=== PATIENT | female | born 1945 | race Caucasian/White ===

== ENCOUNTER 2020-04-21 15:31 | Emergency (ER) | payer OTHER ==
--- NOTE | 2020-04-21 16:49 | RAD REPORT ---
EXAM DESCRIPTION: Elías Single View04/21/2020 4:42 pm CLINICAL HISTORY: Chest pain/syncope COMPARISON: 2013 FINDINGS: The lungs appear clear of acute infiltrate. The heart is normal size IMPRESSION: No acute abnormalities displayed
[2020-04-21] MEDS ORDERED: ONDANSETRON 4 MG/2 ML VIAL ONE (16:56)
[2020-04-21] MEDS ORDERED: NA CHLORIDE 0.9% 1,000 ML ONE (16:56)
[2020-04-21 17:08] LABS: Absolute Lymphocytes (CBC) 1.9 K/uL (0.7-4.9); Basophils % 0.5 % (0-1.3); Lymphocytes % 22.9 % (15.3-44.8); MPV 8.8 fL (7.6-11.3)
[2020-04-21 17:25] LABS: BUN Blood Urea Nitrogen 14 mg/dL (7-18); Bicarbonate 31 mmol/L (21-32); Glucose Level 115 mg/dL (74-106); Potassium 3.6 mmol/L (3.5-5.1); Sodium Level 143 mmol/L (136-145); Troponin (Emerg Dept Use Only) < 0.02 ng/mL (0.0-0.045)
--- NOTE | 2020-04-21 17:44 | ER ---
Nurse's Notes [facility] Name: Mery Skinner Age: 75 yrs Sex: Female : 1945 Arrival Date: 04/21/2020 Time: 15:32 Bed 6 Private MD: Diagnosis: Syncope and collapse Presentation: 04/21 15:54 Chief complaint: Spouse and/or significant other states: "She woke up yesterday feeling jd3 real weak. we were worried about COVID, so we got tested and it was negative. we stopped on the way home and she passed out and now she is nauseous. she is saying she is having some right shoulder pain too.". Coronavirus screen: At this time, the client does not indicate any symptoms associated with coronavirus-19. Ebola Screen: Patient negative for fever greater than or equal to 101.5 degrees Fahrenheit, and additional compatible Ebola Virus Disease symptoms. Initial Sepsis Screen: Does the patient meet any 2 criteria? No. Patient's initial sepsis screen is negative. Does the patient have a suspected source of infection? No. Patient's initial sepsis screen is negative. Risk Assessment: Do you want to hurt yourself or someone else? Patient reports no desire to harm self or others. Onset of symptoms was April 20, 2020. 15:54 Method Of Arrival: Wheelchair jd3 15:54 Acuity: TYSHAWN 3 jd3 Triage Assessment: 16:00 General: Appears distressed, uncomfortable, slender, Behavior is cooperative, bp appropriate for age, anxious. Pain: Denies pain. EENT: No deficits noted. Neuro: Reports a syncopal episode. Cardiovascular: Rhythm is sinus rhythm. Respiratory: No deficits noted. GI: No signs and/or symptoms were reported involving the gastrointestinal system. : No signs and/or symptoms were reported regarding the genitourinary system. Derm: No deficits noted. Musculoskeletal: No deficits noted. Historical: - Allergies: 15:57 No Known Allergies; jd3 - PSHx: 15:57 Hysterectomy; jd3 - Immunization history:: Adult Immunizations up to date. - Social history:: Smoking status: Patient denies any tobacco usage or history of. - Family history:: not pertinent. - Hospitalizations: : No recent hospitalization is reported. Screenin:00 Abuse screen: Denies threats or abuse. Denies injuries from another. Nutritional bp screening: No deficits noted. Tuberculosis screening: No symptoms or risk factors identified. Fall Risk No fall in past 12 months (0 pts). No secondary diagnosis (0 pts). IV access (20 points). Ambulatory Aid- None/Bed Rest/Nurse Assist (0 pts). Gait- Normal/Bed Rest/Wheelchair (0 pts) Mental Status- Oriented to own ability (0 pts). Total May Fall Scale indicates. Assessment: 16:00 General: SEE TRIAGE NOTE. bp 17:00 Neuro: Level of Consciousness is awake, alert, obeys commands, Oriented to Appropriate bp for age Moves all extremities. Full function. Cardiovascular: Rhythm is sinus rhythm. 18:16 Reassessment: PT D/C HOME AMBULATORY, DX WITH SYNCOPE AND COLLAPSE. bp Vital Signs: 15:57 BP 140 / 81; Pulse 75; Resp 20 S; Temp 97.2(TE); Pulse Ox 98% on R/A; Weight 58.97 kg jd3 (R); Height 5 ft. 4 in. (162.56 cm) (R); Pain 0/10; 17:00 BP 126 / 81; Pulse 65; Resp 19; Pulse Ox 100% ; rb3 18:16 BP 126 / 81; Pulse 66; Resp 16; Temp 98; Pulse Ox 100% ; bp 15:57 Body Mass Index 22.32 (58.97 kg, 162.56 cm) jd3 ED Course: 15:32 Patient arrived in ED. as 15:56 Triage completed. jd3 15:59 Arm band placed on. jd3 16:00 Grant James MD is Attending Physician. rn 16:00 Patient has correct armband on for positive identification. Bed in low position. Call bp light in reach. Side rails up X2. Adult w/ patient. 16:04 Chandler Cárdenas, MERE is Primary Nurse. bp 16:43 XRAY Chest (1 view) In Process Unspecified. EDMS 16:45 Inserted saline lock: 20 gauge in right forearm, using aseptic technique. Blood bp collected. 18:16 No provider procedures requiring assistance completed. IV discontinued, intact, bp bleeding controlled, No redness/swelling at site. Pressure dressing applied. Administered Medications: 16:55 Drug: NS 0.9% 1000 ml Route: IV; Rate: 1000 ml; Site: right forearm; bp 18:17 Follow up: IV Status: Completed infusion; IV Intake: 1000ml bp 16:55 Drug: Zofran (Ondansetron) 4 mg Route: IVP; Site: right forearm; bp 18:17 Follow up: Response: No adverse reaction bp Intake: 18:17 IV: 1000ml; Total: 1000ml. bp Outcome: 17:43 Discharge ordered by MD. rn 18:17 Discharged to home ambulatory, with family. bp 18:17 Condition: stable 18:17 Discharge instructions given to patient, Instructed on discharge instructions, follow up and referral plans. Demonstrated understanding of instructions, follow-up care. 18:17 Patient left the ED. bp Signatures: Dispatcher [employer] EDMS Trudi Easley Roman, MD MD rn Davies, Jonathon, RN RN jChandler Cid RN RN Cece Lea, RN RN rb3 Corrections: (The following items were deleted from the chart) 15:59 15:57 Resp 20bpm; Spontaneous; Pulse Ox 100% RA; Temp 97.2F Temporal; 58.97 kg jd3 Reported; Height 5 ft. 4 in. Reported; BMI: 22.3; Pain 0/10; jd3 16:00 15:54 Chief complaint: Spouse and/or significant other states: "She woke up yesterday jd3 feeling real weak. we were worried about COVID, so we got tested and it was negative. we stopped on the way home and she passed out and now she is nauseous." jhayes
--- NOTE | 2020-04-21 17:44 | EDPHYS ---
Physician Documentation [facility] Name: Mery Skinner Age: 75 yrs Sex: Female : 1945 Arrival Date: 04/21/2020 Time: 15:32 Bed 6 Private MD: ED Physician Grant James HPI: 04/21 16:17 This 75 yrs old Female presents to ER via Wheelchair with complaints of rn Syncope. 16:17 The patient has experienced syncope. Onset: The symptoms/episode began/occurred just rn prior to arrival. 16:19 Duration: This was a single episode. Associated injury: The patient did not suffer any rn apparent associated injury. Associated signs and symptoms: Pertinent positives: diaphoresis, nausea, vomiting, Pertinent negatives: abdominal pain, chest pain, confusion, diarrhea, headache, palpitations, seizure. Current symptoms: Currently, the patient is not experiencing any symptoms. The patient has experienced similar episodes in the past. Reports hx of vasovagal syncope, had just gotten COVID test performed in Urgent care in [place], was negative, driving home, felt clammy, felt like was going to pass out, + brief syncopal episode in car, no seizure activity, threw up afterwards and now feeling better. Reports multiple similar episodes in past with negative workups. Denies focal pain. Does report recent aches of right shoulder blade region. No trauma. no headache. No vision changes. . Historical: - Allergies: 15:57 No Known Allergies; jd3 - PSHx: 15:57 Hysterectomy; jd3 - Immunization history:: Adult Immunizations up to date. - Social history:: Smoking status: Patient denies any tobacco usage or history of. - Family history:: not pertinent. - Hospitalizations: : No recent hospitalization is reported. ROS: 16:19 Constitutional: Negative for fever, chills, and weight loss, Eyes: Negative for injury, rn pain, redness, and discharge, Neck: Negative for injury, pain, and swelling, Cardiovascular: Negative for chest pain, palpitations, and edema, Respiratory: Negative for shortness of breath, cough, wheezing, and pleuritic chest pain, Abdomen/GI: Negative for abdominal pain, diarrhea, and constipation, Back: Negative for injury and pain, : Negative for injury, bleeding, discharge, and swelling, MS/Extremity: Negative for injury and deformity, Skin: Negative for injury, rash, and discoloration, Neuro: Negative for headache, weakness, numbness, tingling, and seizure. Exam: 16:19 Constitutional: This is a well developed, well nourished patient who is awake, alert, rn and in no acute distress. Head/Face: Normocephalic, atraumatic. Eyes: Pupils equal round and reactive to light, extra-ocular motions intact. Lids and lashes normal. Conjunctiva and sclera are non-icteric and not injected. Cornea within normal limits. Periorbital areas with no swelling, redness, or edema. ENT: MMM Cardiovascular: Regular rate and rhythm. No pulse deficits. Respiratory: No increased work of breathing, no retractions or nasal flaring. Abdomen/GI: soft, non-tender Skin: Warm, dry MS/ Extremity: Pulses equal, no cyanosis. Neuro: Awake and alert, GCS 15, oriented to person, place, time, and situation. Cranial nerves II-XII grossly intact. Motor strength 5/5 in all extremities. Sensory grossly intact. Cerebellar exam normal. Vital Signs: 15:57 BP 140 / 81; Pulse 75; Resp 20 S; Temp 97.2(TE); Pulse Ox 98% on R/A; Weight 58.97 kg jd3 (R); Height 5 ft. 4 in. (162.56 cm) (R); Pain 0/10; 17:00 BP 126 / 81; Pulse 65; Resp 19; Pulse Ox 100% ; rb3 18:16 BP 126 / 81; Pulse 66; Resp 16; Temp 98; Pulse Ox 100% ; bp 15:57 Body Mass Index 22.32 (58.97 kg, 162.56 cm) jd3 MDM: 16:00 Patient medically screened. rn 17:38 Differential Diagnosis: cardiac arrhythmia, idiopathic syncope, vasovagal episode. Data rn reviewed: vital signs, nurses notes, lab test result(s), EKG, radiologic studies, plain films, and as a result, I will discharge patient. Counseling: I had a detailed discussion with the patient and/or guardian regarding: the historical points, exam findings, and any diagnostic results supporting the discharge/admit diagnosis, lab results, radiology results, the need for outpatient follow up, to return to the emergency department if symptoms worsen or persist or if there are any questions or concerns that arise at home. Response to treatment: the patient's symptoms have markedly improved after treatment, patient is well hydrated. and as a result, I will discharge patient. Special discussion: I discussed with the patient/guardian in detail that at this point there is no indication for admission to the hospital. It is understood, however, that if the symptoms persist or worsen the patient needs to return immediately for re-evaluation. ED course: Pt without acute findings, had discussion with patient, requests that not a lot of tests be run because is feeling better already and has had multiple neg w/u before. She does not feel like is UTI. Did not want to be tested for COVID or other swabs. Feels much better with fluids. Wants to go home. . 04/21 16:16 Order name: CBC with Diff; Complete Time: 17:26 rn 04/21 16:16 Order name: Basic Metabolic Panel; Complete Time: 17:26 rn 04/21 16:16 Order name: Troponin (emerg Dept Use Only); Complete Time: 17:26 rn 04/21 16:18 Order name: XRAY Chest (1 view); Complete Time: 16:54 rn 04/21 16:16 Order name: IV Start; Complete Time: 16:57 rn 04/21 16:16 Order name: EKG; Complete Time: 16:17 rn 04/21 16:16 Order name: EKG - Nurse/Tech; Complete Time: 16:58 rn Administered Medications: 16:55 Drug: NS 0.9% 1000 ml Route: IV; Rate: 1000 ml; Site: right forearm; bp 18:17 Follow up: IV Status: Completed infusion; IV Intake: 1000ml bp 16:55 Drug: Zofran (Ondansetron) 4 mg Route: IVP; Site: right forearm; bp 18:17 Follow up: Response: No adverse reaction bp Disposition: 04/21/20 17:43 Discharged to Home. Impression: Syncope and collapse. - Condition is Stable. - Discharge Instructions: Syncope. - Medication Reconciliation Form, Thank You Letter, Antibiotic Education, Prescription Opioid Use form. - Follow up: Private Physician; When: As needed; Reason: Recheck today's complaints, Re-evaluation by your physician. - Problem is new. - Symptoms have improved. Signatures: Dispatcher [employer] EDGrant Nash, MD MD rn Murillo, Thierno, RN RN jd3 Chandler Cárdenas RN RN bp Corrections: (The following items were deleted from the chart) 18:17 17:43 04/21/2020 17:43 Discharged to Home. Impression: Syncope and collapse. Condition bp is Stable. Forms are Medication Reconciliation Form, Thank You Letter, Antibiotic Education, Prescription Opioid Use. Follow up: Private Physician; When: As needed; Reason: Recheck today's complaints, Re-evaluation by your physician. Problem is new. Symptoms have improved. rn
[2020-04-21 20:38] VITALS: BP 126/81; O2SAT 100
[2020-04-21 20:40] VITALS: TEMP 98
--- NOTE | 2020-04-22 07:41 | EKG ---
Test Date: 2020-04-21 Test Time: 16:57:20 Scrap Sawyer: KRISTI MEASUREMENT RESULTS: Intervals: Rate: 67 NM: 180 QRSD: 72 QT: 406 QTc: 429 [place]: P: 59 NM: 180 QRS: 73 T: 78 INTERPRETIVE STATEMENTS: Normal sinus rhythm Septal infarct, age undetermined Abnormal ECG Compared to ECG 03/16/2014 17:15:49 Myocardial infarct finding now present Sinus bradycardia no longer present Electronically Signed On 04-22-20 07:40:32 CHEMICAL MIXER by Bravo Olivera
== END 2020-04-21 18:17 | disposition home or self-care (01) ==
LOC: ER 15:31
DX: R55 Syncope and collapse (principal); R11.2 Nausea with vomiting, unspecified
CPT/HCPCS: 96361; 93005; 85025; 80048; 36415; 84484; 71045; 96374; 99284; J7030; J2405

== ENCOUNTER 2021-07-17 19:27 | Observation (INO) | payer OTHER ==
--- OUTSIDE RECORDS SUMMARY | 2021-07-17 19:30 | XMS REPORT | Continuity of Care Document ---
:1945 Author Organization [facility] t Address [address] [place] [address] Dr. Sams [address] [place] [id number] Care Team Providers Name Role Phone GC_[facility]_Cathey Attending Clinician Unavailable Fatoumata Booth Attending Clinician [phone] GC_[facility]_Cathey_G Attending Clinician Unavailable Miladys Philip Attending Clinician [phone] HARRIET Attending Clinician Unavailable GC_[facility]_Cathey Admitting Clinician Unavailable GC_SWHATBIC_Cathey_G Admitting Clinician Unavailable LARIOS Admitting Clinician Unavailable Payers Payer Name Policy Type Policy Number Effective Date Expiration Date S [facility] [id number] (MEDICARE REPLACEMENT/ADVANTAGE - PPO) Problems This patient has no known problems. Allergies, Adverse Reactions, Alerts This patient has no known allergies or adverse reactions. Medications This patient has no known medications. Procedures This patient has no known procedures. Encounters Start End Encounter Admission Attending Care Care Encounter Source Date/Time Date/Time Type Type Clinicians Facility Department ID 2021-07-04 2021-07-04 Outpatient [facility] PRIV PRIV [id number] [facility] 03:42:00 03:42:00 _Cathey [id number] [facility] 2021-07-03 2021-07-03 Outpatient GC_[facility] PRIV PRIV [id number] [facility] 11:02:00 11:02:00 _Cathey [id number] Med[facility] 2021-06-24 2021-06-24 Outpatient GC_[facility] PRIV PRIV [id number] [facility] 06:17:00 06:17:00 _Cathey [id number] Medica [facility] 2021-06-21 2021-06-21 Outpatient GC_[facility] PRIV PRIV [id number] [facility] 12:27:00 12:27:00 _Cathey [id number] Medica [facility] 2021-06-21 2021-06-21 Outpatient Booth, PRIV PRIV [id number] 00:00:00 00:00:00 Elaine Ham [id number] [facility] 2021-06-20 2021-06-20 Outpatient GC_[facility] PRIV PRIV [id number] [facility] 06:48:00 06:48:00 _Cathey [id number] Medica l 2021-06-19 2021-06-19 Outpatient GC_[facility] PRIV PRIV [id number] [facility] 05:54:00 05:54:00 _Cathey [id number] Medica l 2021-05-22 2021-05-22 Outpatient GC_[facility]WHATB[facility] PRIV PRIV [id number] [facility] 05:56:00 05:56:00 _Cathey_G [id number] [facility] 2021-05-17 2021-05-17 Outpatient GC_[facility] PRIV PRIV [id number] [facility] 11:59:00 11:59:00 _Cathey [id number] Medica l 2021-05-16 2021-05-16 Outpatient [facility] PRIV PRIV [id number] [facility] 12:57:00 12:57:00 _Cathey [id number] Medica l 2021-05-16 2021-05-16 Outpatient Tamera, PRIV PRIV [id number] 00:00:00 00:00:00 Jacy [id number] Miladys [id number] 2020-06-25 2020-06-25 Outpatient [facility] [id number] [place] 00:00:00 00:00:00 APOOR [address] 2020-05-21 2020-05-21 [facility] [id number] [place] 00:00:00 00:00:00 APOOR [address] Results This patient has no known results.
[2021-07-17 20:54] LABS: Absolute Lymphocytes (CBC) 0.4 K/uL (0.7-4.9); Lymphocytes % 11.2 % (15.3-44.8); MPV 8.1 fL (7.6-11.3); RBC Red Blood Cell Count 4.63 M/uL (3.86-4.86)
[2021-07-17] MEDS ORDERED: ONDANSETRON 4 MG/2 ML VIAL ONE (20:54)
[2021-07-17] MEDS ORDERED: IBUPROFEN 400 MG TAB ONE (20:54)
[2021-07-17 21:36] LABS: Potassium 3.7 mmol/L (3.5-5.1)
[2021-07-17 21:37] LABS: SARS-COV-2 RT PCR NEGATIVE (NEGATIVE)
[2021-07-17 22:40] LABS: Urine Urothelial Cells <5 /HPF (NONE SEEN)
[2021-07-17 22:41] LABS: Urine Bacteria <20 /HPF (<20); Urine RBC <5 /HPF (NONE SEEN)
--- NOTE | 2021-07-17 23:29 | ER ---
Nurse's Notes [facility] Name: Mery Skinnre Age: 76 yrs Sex: Female : 1945 Arrival Date: 07/17/2021 Time: 19:32 Bed 20 Private MD: Diagnosis: Fever, unspecified;UTI/ Urinary tract infection, site not specified Presentation: 07/17 19:44 Chief complaint: Patient states: she has been dealing with a uti since the summer and 5 has been taking bactrim the past 2 weeks. has now been having chills, headache and a fever the past few days. Coronavirus screen: Vaccine status: Patient reports receiving the 2nd dose of the covid vaccine. Ebola Screen: No symptoms or risks identified at this time. Initial Sepsis Screen: Does the patient meet any 2 criteria? No. Patient's initial sepsis screen is negative. Does the patient have a suspected source of infection? No. Patient's initial sepsis screen is negative. Risk Assessment: Do you want to hurt yourself or someone else? Patient reports no desire to harm self or others. Onset of symptoms was July 15, 2021. 19:44 Method Of Arrival: Ambulatory [facility] 19:44 Acuity: TYSHAWN 3 [facility] Triage Assessment: 19:47 Headache History: The patient has had previous headaches. General: Appears in no [facility] apparent distress. Behavior is cooperative, appropriate for age. Pain: Complains of pain in head Pain currently is 3 out of 10 on a pain scale. Pain began 2-3 days ago. Also complains of nausea. Neuro: No deficits noted. Level of Consciousness is awake, alert, obeys commands, Oriented to person, place, time, situation. Cardiovascular: No deficits noted. Capillary refill < 3 seconds Patient's skin is warm and dry. Respiratory: No deficits noted. Airway is patent Trachea midline Respiratory effort is even, unlabored. : Reports burning with urination, pain urinary frequency. Historical: - Allergies: 19:46 No Known Allergies; 5 - Immunization history:: Client reports receiving the 2nd dose of the Covid vaccine. - Social history:: Smoking status: Patient denies any tobacco usage or history of. - Family history:: not pertinent. - Hospitalizations: : No recent hospitalization is reported. Screenin:00 Abuse screen: Denies threats or abuse. Nutritional screening: No deficits noted. vc1 Tuberculosis screening: No symptoms or risk factors identified. Fall Risk None identified. Assessment: 20:00 General: Appears in no apparent distress. comfortable, Behavior is calm, cooperative, vc1 appropriate for age. Pain: Complains of pain in forehead, right scientology and left scientology Pain does not radiate. Neuro: Reports Headache. Cardiovascular: No deficits noted. Respiratory: No deficits noted. GI: Reports nausea. 21:00 Reassessment: Patient appears in no apparent distress at this time. Patient is alert, vc1 oriented x 3, equal unlabored respirations, skin warm/dry/pink. Patient states symptoms have improved. 23:00 Reassessment: Patient appears in no apparent distress at this time. Patient and/or vc1 family updated on plan of care and expected duration. Pain level reassessed. Patient is alert, oriented x 3, equal unlabored respirations, skin warm/dry/pink. 07/18 00:24 Reassessment: Patient and/or family updated on plan of care and expected duration. Pain vc1 level reassessed. Patient is alert, oriented x 3, equal unlabored respirations, skin warm/dry/pink. Patient states symptoms have improved. Vital Signs: 07/17 19:44 BP 146 / 89; Pulse 97; Resp 18; Temp 99.4(O); Pulse Ox 98% on R/A; Weight 61.23 kg; 5 Height 5 ft. 4 in. (162.56 cm); Pain 3/10; 23:09 Pulse 80; Resp 20; Pulse Ox 94% on R/A; vc1 23:38 BP 106 / 64; Pulse 80; Resp 18; Temp 98.3(O); Pulse Ox 95% on R/A; vc1 07/18 00:00 BP 104 / 63; Pulse 81; Resp 18; Pulse Ox 97% on R/A; vc1 07/17 19:44 Body Mass Index 23.17 (61.23 kg, 162.56 cm) 5 ED Course: 07/17 19:32 Patient arrived in ED. ja2 19:46 Triage completed. 5 19:47 Arm band placed on right wrist. 5 19:49 Grant James MD is Attending Physician. rn 20:00 Patient has correct armband on for positive identification. Bed in low position. Call vc1 light in reach. Side rails up X2. Door closed. Warm blanket given. 20:47 Deepa Charles, MERE is Primary Nurse. vc1 20:48 Strep Sent. vc1 20:48 COVID-19/FLU A+B (Document "Date of Onset" if Symptomatic) Sent. vc1 20:48 Lactate Sent. vc1 20:48 Procalcitonin Sent. vc1 20:48 Basic Metabolic Panel Sent. vc1 20:48 Urine Culture Sent. vc1 20:48 Urine Microscopic Only Sent. vc1 20:48 CBC with Diff Sent. vc1 21:35 COVID-19/FLU A+B (Document "Date of Onset" if Symptomatic) Sent. vc1 21:35 Urine Microscopic Only Sent. vc1 21:35 Urine Culture Sent. vc1 21:35 Basic Metabolic Panel Sent. vc1 21:35 Procalcitonin Sent. vc1 21:35 Blood Culture Adult (2) Sent. vc1 21:35 Throat Culture Sent. vc1 22:11 CT Abd/Pelvis - IV Contrast Only In Process Unspecified. EDMS 23:28 Sandra Garcia MD is Hospitalizing Provider. rn 07/18 00:24 No provider procedures requiring assistance completed. Patient admitted, IV remains in vc1 place. Administered Medications: 07/17 20:48 Not Given (Other Intervention Used; Already took at homee): Tylenol 650 mg PO once vc1 21:03 Drug: Motrin (ibuprofen) 800 mg Route: PO; vc1 23:02 Follow up: Response: No adverse reaction vc1 23:51 Drug: Rocephin (cefTRIAXone) 1 grams Route: IV; Rate: calculated rate; Site: right vc1 forearm; 23:58 Follow up: Response: Nausea is increased; IV Intake: 50ml vc1 07/18 00:00 Follow up: Response: No adverse reaction; IV Status: Completed infusion; IV Intake: 03recx4 07/17 23:58 Drug: Zofran (Ondansetron) 4 mg {Note: Patient wanted to wait before receiving vc1 medication.} Route: IVP; Site: right forearm; 07/18 00:47 Follow up: Response: No adverse reaction vc1 Intake: 07/17 23:58 IV: 50ml; Total: 50ml. vc1 07/18 00:00 IV: 50ml; Total: 100ml. vc1 Outcome: 07/17 23:28 Decision to Hospitalize by Provider. rn 07/18 00:24 Condition: good vc1 Discharge instructions given to patient, Instructed on the need for admit. 00:46 Admitted to Med/surg accompanied by tech, family with patient, via wheelchair, room vc1 221, Report called to receiving nurse 00:47 Patient left the ED. vc1 Signatures: Dispatcher [employer] EDGrant Nash MD MD rn Alexander, Jessica ja2 Mazur, Sarah, RN RN 5 Deepa Charles RN RN vc1
--- NOTE | 2021-07-17 23:29 | EDPHYS ---
Physician Documentation [facility] Name: Mery Skinner Age: 76 yrs Sex: Female : 1945 Arrival Date: 07/17/2021 Time: 19:32 Bed 20 Private MD: ED Physician Grant James HPI: 07/17 20:04 This 76 yrs old Female presents to ER via Ambulatory with complaints of Urinary rn Problem, Fever, CHILLS, Headache, Nausea. 20:04 The patient reports fever, that was measured at 102 degrees Fahrenheit. Onset: The rn symptoms/episode began/occurred 3 day(s) ago. Modifying factors: there are no obvious modifying factors. Associated signs and symptoms: Pertinent positives: backache, chills, headache, Pertinent negatives: abdominal pain, altered mental status, cough, diarrhea, skin rash, shortness of breath, vomiting. Severity of symptoms: At their worst the symptoms were moderate in the emergency department the symptoms have improved. The patient has experienced similar episodes in the past. The patient has been recently seen by a physician:. Pt reports fever, chills, back ache, dysuria, for 3 days. Reports tmax 102. Is on bactrim for UTI. No cough/sob/chest pain/abd pain. Reports nausea. . Historical: - Allergies: 19:46 No Known Allergies; sm5 - Immunization history:: Client reports receiving the 2nd dose of the Covid vaccine. - Social history:: Smoking status: Patient denies any tobacco usage or history of. - Family history:: not pertinent. - Hospitalizations: : No recent hospitalization is reported. ROS: 20:06 Constitutional: + fever and chills Eyes: Negative for injury, pain, redness, and corn husker, Neck: Negative for injury, pain, and swelling, Cardiovascular: Negative for chest pain, palpitations, and edema, Respiratory: Negative for shortness of breath, cough, wheezing, and pleuritic chest pain, Abdomen/GI: + nausea Back: + lower back pain : + dysuria MS/Extremity: Negative for injury and deformity, Skin: Negative for injury, rash, and discoloration, Neuro: + headache and generalized weakness Exam: 20:06 Constitutional: This is a well developed, well nourished patient who is awake, alert, rn and in no acute distress. Head/Face: Normocephalic, atraumatic. Eyes: Periorbital areas with no swelling, redness, or edema. ENT: NO stridor Neck: Trachea midline, no masses palpated, and no cervical lymphadenopathy. Supple, full range of motion without nuchal rigidity. No Meningismus. Cardiovascular: Regular rate and rhythm. No pulse deficits. Respiratory: No increased work of breathing, no retractions or nasal flaring. Abdomen/GI: soft, non-tender, no rebound or masses Back: No spinal tenderness. No costovertebral tenderness. Full range of motion. Skin: Warm, dry MS/ Extremity: Pulses equal, no cyanosis. Neuro: Awake and alert, GCS 15 Vital Signs: 19:44 BP 146 / 89; Pulse 97; Resp 18; Temp 99.4(O); Pulse Ox 98% on R/A; Weight 61.23 kg; [facility] Height 5 ft. 4 in. (162.56 cm); Pain 3/10; 23:09 Pulse 80; Resp 20; Pulse Ox 94% on R/A; vc1 23:38 BP 106 / 64; Pulse 80; Resp 18; Temp 98.3(O); Pulse Ox 95% on R/A; vc1 07/18 00:00 BP 104 / 63; Pulse 81; Resp 18; Pulse Ox 97% on R/A; vc1 07/17 19:44 Body Mass Index 23.17 (61.23 kg, 162.56 cm) [facility] MDM: 07/17 19:49 Patient medically screened. rn 23:25 Differential diagnosis: viral Infection, bacterial infection, URI, UTI, rn gastroenteritis. Data reviewed: vital signs, nurses notes, lab test result(s), radiologic studies, CT scan, and as a result, I will admit patient. Counseling: I had a detailed discussion with the patient and/or guardian regarding: the historical points, exam findings, and any diagnostic results supporting the discharge/admit diagnosis, lab results, radiology results, the need for further work-up and treatment in the hospital. Response to treatment: the patient's symptoms have mildly improved after treatment, and as a result, I will admit patient. Admission orders: after a detailed discussion of the patient's condition and case, the admit orders are written by me. ED course: Pt without clear source of fever/rigors, ct abdomen pelvis neg for acute findings, COVID/Flu/Strep neg. Will admit to Dr. Garcia for IV abx and cultures. . 07/17 20:02 Order name: CBC with Diff; Complete Time: 21:12 rn 07/17 20:02 Order name: Basic Metabolic Panel; Complete Time: 22:32 rn 07/17 20:02 Order name: Urine Culture rn 07/17 20:02 Order name: Urine Microscopic Only; Complete Time: 22:43 rn 07/17 20:02 Order name: Procalcitonin; Complete Time: 22:43 rn 07/17 20:02 Order name: Lactate; Complete Time: 21:27 rn 07/17 20:02 Order name: Blood Culture Adult (2) rn 07/17 20:02 Order name: COVID-19/FLU A+B (Document "Date of Onset" if Symptomatic); Complete Time: rn 22:32 07/17 20:02 Order name: Strep; Complete Time: 21:27 rn 07/17 20:04 Order name: CT Abd/Pelvis - IV Contrast Only rn 07/17 21:17 Order name: Throat Culture EDND 07/17 20:02 Order name: IV Start; Complete Time: 20:48 rn 07/17 20:02 Order name: Urine Dipstick-Ancillary (obtain specimen); Complete Time: 20:48 rn Administered Medications: 20:48 Not Given (Other Intervention Used; Already took at homee): Tylenol 650 mg PO once vc1 21:03 Drug: Motrin (ibuprofen) 800 mg Route: PO; vc1 23:02 Follow up: Response: No adverse reaction vc1 23:51 Drug: Rocephin (cefTRIAXone) 1 grams Route: IV; Rate: calculated rate; Site: right vc1 forearm; 23:58 Follow up: Response: Nausea is increased; IV Intake: 50ml vc1 07/18 00:00 Follow up: Response: No adverse reaction; IV Status: Completed infusion; IV Intake: [id number] 07/17 23:58 Drug: Zofran (Ondansetron) 4 mg {Note: Patient wanted to wait before receiving vc1 medication.} Route: IVP; Site: right forearm; 07/18 00:47 Follow up: Response: No adverse reaction vc1 Disposition Summary: 07/17/21 23:28 Hospitalization Ordered Hospitalization Status: Observation rn Provider: Sandra Garcia rn Location: Telemetry/MedSurg (observation) rn Condition: Stable rn Problem: new rn Symptoms: have improved rn Bed/Room Type: Standard rn Room Assignment: 221(07/18/21 00:05) cg Diagnosis - Fever, unspecified rn - UTI/ Urinary tract infection, site not specified rn Forms: - Medication Reconciliation Form rn - SBAR form rn Signatures: Dispatcher [employer] EDGrant Nash MD MD rn Garcia, Cindy, RN RN cg Mazur, Sarah, RN RN 5 Deepa Charles RN RN vc1 Corrections: (The following items were deleted from the chart) 00:05 07/17 23:28 rn
[2021-07-17] MEDS ORDERED: CEFTRIAXONE 1000 MG/VIAL ONE (23:49)
[2021-07-17] MEDS ORDERED: NA CHLORIDE 0.9% 50 ML ONE (23:50)
[2021-07-18 00:55] VITALS: O2SAT 97
[2021-07-18 01:27] VITALS: BMI 23.4
[2021-07-18] MEDS: NA CHLORIDE 0.9% 1,000 ML IV SCH ×2 (02:09→10:03)
[2021-07-18] MEDS: ACETAMINOPHEN 500 MG TAB PO PRN ×2 (02:09→09:11)
[2021-07-18] MEDS ORDERED: ONDANSETRON 4 MG/2 ML VIAL IV PRN (03:00)
[2021-07-18 06:02] LABS: Absolute Lymphocytes (CBC) 0.7 K/uL (0.7-4.9); Hematocrit 38.7 % (36.0-45.0); Lymphocytes % 16.6 % (15.3-44.8); RBC Red Blood Cell Count 4.61 M/uL (3.86-4.86)
[2021-07-18 06:10] LABS: Potassium 4.4 mmol/L (3.5-5.1)
[2021-07-18] MEDS ORDERED: CEFTRIAXONE 1000 MG/VIAL ONE (07:57)
[2021-07-18] MEDS ORDERED: INFLUENZA VACCINE (for 6+ mo) 0.5 ML DOSE IMVAC ONE (08:00)
[2021-07-18] MEDS ORDERED: CEFTRIAXONE 1,000 MG in NA CHLORIDE 0.9% 50 ML IVPB SCH (10:00)
--- NOTE | 2021-07-18 10:34 | RAD REPORT ---
EXAM DESCRIPTION: Abdomen Pelvis W Contrast RadLex: CT ABDOMEN PELVIS WITH IV CONTRAST CLINICAL HISTORY: Fever, back pain, possible pyelonephritis. COMPARISON: None. TECHNIQUE: CT of the abdomen and pelvis was performed following intravenous administration of iodina nhi contrast. Arterial phase images through the abdomen, and portal venous phase images through the a bdomen and pelvis were obtained Oral contrast was not administered. Axial, coronal, and sagittal soft tissue window reconstructions were created and sent to PACS. This exam was performed according to our departmental dose-optimization program, which includes autom ated exposure control, adjustment of the mA and/or kV according to patient size and/or use of iterati ve reconstruction technique. FINDINGS: Thoracic: No significant abnormality. Hepatobiliary: No concerning hepatic lesion identified. Few tiny hepatic hypodensities, likely cysts. The portal veins are patent. The gallbladder is unremarkable. No biliary ductal dilatation. Pancreas: Unremarkable. Spleen: Unremarkable. Gastrointestinal: No evidence of bowel obstruction or perienteric inflammation. The appendix is nonvi sualized, but there are no pericecal inflammatory changes. Small to moderate amount of fecal material throughout the colon. Adrenals: No abnormality identified in either adrenal gland. Renal: No concerning parenchymal abnormality in either kidney. No striated appearance or regional hyp odensities to suggest pyelonephritis. Few small rounded hypodensities, likely cysts. No hydronephrosi s or urolithiasis. Bladder/Reproductive: Unremarkable appearance of the urinary bladder by CT technique. Vascular/Lymphatics: No lymphadenopathy identified by CT size criteria. Abdominal aorta is normal in caliber. Moderate calcific atherosclerosis. Musculoskeletal: No concerning osseous lesion identified. Prominent disc height loss at L4-5 and L5-S 1 with mild endplate degenerative changes. No osseous findings to suggest discitis-osteomyelitis. Fluid / peritoneum: No significant free fluid. No free intraperitoneal air identified. IMPRESSION 1. No acute abnormality identified in the abdomen or pelvis by CT. 2. No renal parenchymal heterogeneity to suggest imaging findings of acute pyelonephritis. 3. Prominent disc height loss at L4-5 and L5-S1 with mild endplate degenerative changes. No osseous findings by CT to suggest discitis-osteomyelitis. 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 The interpreting radiologist is fully responsible for the content of the report.
[2021-07-18 11:51] VITALS: BP 93/62; TEMP 98.7
--- NOTE | 2021-07-19 11:49 | SS ---
Date of Discharge: 07/18/2021 Chief Complaint: Fever and chills. History Of Present Illness: This is a 76-year-old female patient, who has been having recurrent urin yajaira tract infection, under care of urogynecologist in [place], Dr. Jacy Philip. The patient has ta nick antibiotics a few times in last few months and recently her last episode of urinary tract infecti on was about 12 days ago and she started to take Bactrim as prescribed by her urogynecologist. While on this antibiotic, she started to have fever and chills day before yesterday and yesterday. So wit h 2 days in a row with these symptoms, she came into emergency room. Denies any abdominal pain or ba ck pain. She has some dysuria with urinary tract infection. Denies any hematuria. After she was ev aluated in ER, urine culture and blood culture were done and she was admitted to the hospital with IV antibiotic, ceftriaxone. This morning when I saw her, she was feeling better, denied any complaints . No nausea. No vomiting. Allergies: NO KNOWN ALLERGIES. Medications: She takes Prolia injection every 6 months and she is on estrogen vaginal suppository as prescribed by her urogynecologist and takes Caltrate plus D 2 times a day as well as Bactrim prescri bed recently for urinary tract infection. Review of Systems: Constitutional: As mentioned above. Genitourinary: As mentioned above. All other systems reviewed and negative. Past Medical History: Significant for hyperlipidemia, diverticulosis, osteoporosis, and recurrent ur inary tract infection, thyroid nodule. Past Surgical History: Biopsy on thyroid nodule in May 22, 2020 and it was negative. She had h ysterectomy in the past and removal of ovarian cyst and bladder suspension surgery. Family History: Significant for father with head injury. Mother , had breast cancer. Social History: Prior history of smoking, not at present time. Use of alcohol occasional, use of gl ass of wine or beer. Physical Examination: Vital Signs: Upon admission; temperature 99.4, pulse 97, respiratory rate 18, blood pressure 146/89, oxygen saturation 98%. Height 5 feet 4 inches, weight 136 pounds. General: Awake, alert, oriented, not in distress. HEENT: Head atraumatic, normocephalic. Conjunctivae nonerythematous. Sclerae white. Mouth, no thr ush or edema noted. Ears/Nose, no mass, lesion, discharge noted. Neck: Supple. No JVD, lymph nodes, bruit, thyromegaly noted. Lungs: Bilateral good equal air entry. Clear to auscultation. No rhonchi. No rales. Heart: Normal heart sounds, no murmur or gallop. Abdomen: Soft, bowel sounds normal. No guarding, rigidity, tenderness, mass, hepatosplenomegaly, dis tention, or bruit noted. Extremities: No leg edema. No calf tenderness. Skin: No rash, ulcer, cellulitis. Lymphatics: No lymph node enlargement in neck, supraclavicular, infraclavicular region. Neuro: No focal neurological deficit. Chest: Unremarkable. External Genitalia: Deferred. Rectal: Deferred. Laboratory Data: Yesterday; white count 4, hemoglobin 13.1, platelets 187. This morning; white coun t 4.2, hemoglobin 13, platelets 191. Yesterday; sodium 135, potassium 3.7, chloride 102, bicarb 24, BUN 10, creatinine 0.71, glucose 126. Procalcitonin 0.12. This morning; sodium 139, potassium 4.4, chloride 106, bicarb 28, BUN 8, creatinine 0.67, glucose 96. Urinalysis; 10-20 WBC, bacteria less th an 20, RBC less than 5. Influenza A and B test negative. COVID-19 test negative. CAT scan of the a bdomen and pelvis done in the emergency room was negative for any acute changes. Blood culture and u rine culture result pending. Hospital Course: After the patient was evaluated in the ER, she was admitted to the hospital. She w as started on ceftriaxone and medically she is stable. She feels better overall. There is no reason for her to require ongoing hospital stay, so we did talk about possibility of going home with oral a ntibiotics and she really would like to go home and I can follow up on her culture results on outpati ent basis and if it will require any change in antibiotic, then we will have to consider further inte rvention, but meanwhile I have suggested her to go home with Cipro and she informed me that yesterday she did talk to her urogynecologist and she actually has received a prescription for Cipro and she w ill start it upon discharge. I have instructed her to follow up with her urogynecologist next week a nd the patient should discontinue her Bactrim and start taking Cipro. Final Diagnoses: 1.Urinary tract infection. 2.Leukocytopenia. 3.Osteoporosis. 4.Hyperlipidemia. 5.Thyroid nodule. 6.Diverticulosis. CHAGO/MODL Voice ID: [id number] Report ID: [id number]
[2021-07-23 10:11] LABS: Urine Blood Trace-intact (Negative); Urine Glucose Negative (Negative); Urine Protein Negative (Negative)
== END 2021-07-18 01:15 | disposition home or self-care (01) ==
LOC: ER 19:27 → ERHOLD 07-18 00:01 → 2ND 07-18 00:23
PROVIDERS: ADMIT Internal Medicine; ATTEND Internal Medicine
DX: N39.0 Urinary tract infection, site not specified (principal); E78.5 Hyperlipidemia, unspecified; D72.819 Decreased white blood cell count, unspecified; M81.0 Age-related osteoporosis without current pathological fracture; K57.90 Diverticulosis of intestine, part unspecified, without perforation or abscess without bleeding; E04.1 Nontoxic single thyroid nodule; Z23 Encounter for immunization; Z87.891 Personal history of nicotine dependence; Z20.822 Contact with and (suspected) exposure to COVID-19; Z90.710 Acquired absence of both cervix and uterus; Z80.3 Family history of malignant neoplasm of breast
CPT/HCPCS: 87040 ×2; 87070; 87088; 85025 ×2; 87086; 80048 ×2; 36415; 87081; 83605; 87077; 87186; 81015; 84145; 0240U; 74177; 90471; 96375; 96374; 99285; Q9967; Q2035; J7030 ×2; J2405; G0378; 81003